=== PATIENT | male | born 1990 | race Caucasian/White ===

== ENCOUNTER 2020-09-02 04:23 | Emergency (ER) | payer SELFPAY ==
--- NOTE | 2020-09-02 05:38 | ER Document Report ---
ED Respiratory Problem - General Chief Complaint: Shortness Of Breath Stated Complaint: BREATHING DIFFICULTY Time Seen by Provider: 09/02/20 05:29 Mode of Arrival: Ambulatory Information source: Patient Notes: 09/02/20 04:49 - ED Nursing Note by SOCORRO SEGURA Num: [id number] : 1990 Patient Age: [age] Y/O MALE, WITH A HX OF SLEEP APNEA, PRESENTS REPORTING THAT FOR THE LAST 3 NIGHTS HE WAS AWAKENED "GASPING FOR AIR". TONIGHT, PT REPORTED THAT HE COULD NOT GO BACK TO SLEEP. PT REPORTED THAT HE TAKES SLEEPING AIDS NIGHTLY TO HELP HIM SLEEP. INAD. SAT 97% ON R/A. LUNGS CLEAR, SPEAKING IN FULL SENTENCES. Initialized on 09/02/20 04:49 - END OF NOTE MY NOTES 30-year-old male arrives by POV with chief complaint of having awakening from sleeping with gasping sensation and air hungry. Patient reports this occurred 3 times tonight sequentially and every night for the last 3 nights. Patient denies any hemoptysis sinusitis earache headache nuchal rigidity thyroid problems history of pulmonary emboli heart attack. His father has sleep apnea as well but never symptoms like the patient has experienced. Patient denies any new medicines any new travel he denies any new drinks or foods new pets. Patient has moved from [place] to [place] or over 2 months ago. He denies any heating or air conditioning changes in his house. Patient stopped smoking and drinking 2 months ago after he was told he had high blood pressure. His mother and father both have high blood pressure and take medications for this. He is stopped using high salty foods. Patient works as a server security administrator and has not had any new herbal medicines or any new foods. Patient reports she already had a COVID-19 the the prior day and it was negative. He arrives with tachycardia with EKG sinus tachycardia 105. His portable chest x- ray was negative for any lesions. TRAVEL OUTSIDE OF THE [place] IN LAST 30 DAYS: No - Related Data Allergies/Adverse Reactions: azithromycin Allergy (Verified 09/02/20 04:44) Home Medications: LEXAPRO. SLEEPING MEDICATIONS Past Medical History - General Information source: Patient - Social History Smoking Status: Former Smoker Cigarette use (# per day): No - Patient stop drinking and smoking 2 months ago Chew tobacco use (# tins/day): No Smoking Education Provided: No Frequency of alcohol use: None Drug Abuse: None Lives with: Family Family History: Reviewed & Not Pertinent Patient has suicidal ideation: No Patient has homicidal ideation: No Review of Systems - Review of Systems Constitutional: See HPI, Weakness EENT: See HPI, Throat pain Cardiovascular: See HPI, Palpitations, Orthopnea Respiratory: No symptoms reported Gastrointestinal: No symptoms reported Genitourinary: No symptoms reported Male Genitourinary: No symptoms reported Musculoskeletal: No symptoms reported Skin: No symptoms reported Hematologic/Lymphatic: No symptoms reported Neurological/Psychological: No symptoms reported Physical Exam - Vital signs Vitals: Temp Pulse Resp BP Pulse Ox 98.1 F 114 H 16 138/95 H 97 09/02/20 04:30 09/02/20 04:30 09/02/20 04:30 09/02/20 04:30 09/02/20 04:30 Interpretation: Hypertensive, Tachycardic - General General appearance: Appears well, Alert - HEENT Head: Normocephalic, Atraumatic Eyes: Normal Pupils: PERRL - Respiratory Respiratory status: No respiratory distress Chest status: Nontender Breath sounds: Normal Chest palpation: Normal - Cardiovascular Rhythm: Tachycardia Heart sounds: Normal auscultation Murmur: No - Abdominal Inspection: Normal Distension: No distension Bowel sounds: Normal Tenderness: Nontender Organomegaly: No organomegaly - Rectal Prostate: Other - Deferred - Genitourinary Scrotum: Other - Deferred - Back Back: Normal, Nontender - Extremities General upper extremity: Normal inspection, Nontender, Normal color, Normal ROM, Normal temperature General lower extremity: Normal inspection, Nontender, Normal color, Normal ROM, Normal temperature, Normal weight bearing. No: Shravan's sign - Neurological Neuro grossly intact: Yes Cognition: Normal Orientation: AAOx4 Rueter Coma Scale Eye Opening: Spontaneous Rueter Coma Scale Verbal: Oriented Raudel Coma Scale Motor: Obeys Commands Raudel Coma Scale Total: 15 Speech: Normal Motor strength normal: LUE, RUE, LLE, RLE Sensory: Normal - Psychological Associated symptoms: Anxious - Skin Skin Temperature: Warm Skin Moisture: Dry Skin Color: Normal Course - Vital Signs Vital signs: Temp Pulse Resp BP Pulse Ox 98.1 F 110 H 16 132/90 H 97 09/02/20 04:30 09/02/20 05:55 09/02/20 04:30 09/02/20 05:55 09/02/20 04:30 - Laboratory Results Result Diagrams: 09/02/20 05:47 09/02/20 05:47 Critical Laboratory Results Reviewed: Yes Attending or Supervising Physician who Reviewed Labs: BRIANNE JAMES JR - Radiology Results Critical Radiology Results Reviewed: Yes Attending or Supervising Physician who Reviewed Radiology: BRIANNE JAMES JR EKG Interpretation by Me EKG shows normal: Sinus rhythm Rate: Tachycardia Rhythm: NSR - Sinus tachycardia [address] elevation no ST depression no T wave elevation no T wave depression and I read this EKG myself and I agree with the EKG machine findings. Critical Care Note - Critical Care Note Comments: this case was turned over to Tung at 0605 Discharge - Discharge Clinical Impression: Tachycardia Hypertension Qualifiers: Hypertension type: unspecified Qualified Code(s): I10 - Essential (primary) hypertension Sleep apnea Qualifiers: Sleep apnea type: unspecified type Qualified Code(s): G47.30 - Sleep apnea, unspecified Condition: Stable Disposition: HOME, SELF-CARE Additional Instructions: Follow-up with personal doctor return to ER as needed take medicines as directed encourage fluids Prescriptions: Lisinopril/Hydrochlorothiazide [Lisinopril-Hctz 20-25 mg Tab] 1 each PO DAILY #30 tablet Forms: Return to Work
[2020-09-02 06:11] LABS: ABSOLUTE EOSINOPHILS # (AUTO) 0.1 10^3/uL (0.0-0.6); ABSOLUTE LYMPHOCYTES (AUTO) 2.1 10^3/uL (0.5-4.7); ABSOLUTE MONOCYTES (AUTO) 0.6 10^3/uL (0.1-1.4); ABSOLUTE NEUT (AUTO) 3.6 10^3/uL (1.7-8.2); BASOPHILS % (AUTO) 0.4 % (0-2); EOSINOPHILS % (AUTO) 1.4 % (0-6); HEMATOCRIT 42.9 % (37.9-51.0); HEMOGLOBIN 14.4 g/dL (13.5-17.0); LYMPHOCYTES % (AUTO) 32.4 % (13-45); MEAN CORPUSCULAR HEMOGLOBIN 28.3 pg (27.0-33.4); MEAN CORPUSCULAR HGB CONC 33.5 g/dL (32.0-36.0); MEAN CORPUSCULAR VOLUME 85 fl (80-97); MONOCYTES % (AUTO) 9.3 % (3-13); PLATELET COUNT 303 10^3/uL (150-450); RED BLOOD COUNT 5.08 10^6/uL (4.35-5.55); RED CELL DISTRIBUTION WIDTH 13.4 % (11.5-14.0); SEGMENTED NEUTROPHILS % (AUTO) 56.5 % (42-78); TOTAL CELLS COUNTED % (AUTO) 100 %; WHITE BLOOD COUNT 6.3 10^3/uL (4.0-10.5)
[2020-09-02 06:29] LABS: ALBUMIN 4.4 g/dL (3.5-5.0); ALKALINE PHOSPHATASE 56 U/L (38-126); ANION GAP 8 (5-19); ASPARTATE AMINO TRANSFERASE 31 U/L (17-59); BILIRUBIN,DIRECT 0.1 mg/dL (0.0-0.4); BILIRUBIN,TOTAL 0.3 mg/dL (0.2-1.3); BLOOD UREA NITROGEN 18 mg/dL (7-20); CALCIUM 9.7 mg/dL (8.4-10.2); CARBON DIOXIDE 25 mmol/L (22-30); CHLORIDE 106 mmol/L (98-107); GLUCOSE 122 mg/dL (75-110); POTASSIUM 3.9 mmol/L (3.6-5.0); TOTAL PROTEIN 7.3 g/dL (6.3-8.2)
--- NOTE | 2020-09-02 06:29 | RADIOLOGY REPORT (SQ) ---
CHEST X-RAY 1 VIEW on 09/02/2020 at 5:58 AM CLINICAL INDICATION: Shortness of breath COMPARISON: None FINDINGS: The lungs are clear. Cardiac, hilar and mediastinal contours are within normal limits. Pulmonary vascularity is within normal limits. No bony abnormality is noted. IMPRESSION: No active disease.
[2020-09-02 07:35] LABS: FREE T3 8.15 pg/mL (2.77-5.27); FREE T4 (FREE THYROXINE) 1.3 ng/dL (0.78-2.19)
[2020-09-02 08:01] VITALS: BP 133/84
--- NOTE | 2020-09-02 08:38 | ER Document Report ---
Doctor's Note Notes: 09/02/20 08:34 This 30-year-old male patient was turned over to me at shift change this morning pending a D-dimer, Chem-12 and TSH. His concerning physical findings were a slightly elevated heart rate and elevated blood pressure. He has been told in the past she had high blood pressure. The lab work showed a negative D-dimer, and an elevated TSH at 8.31, when I saw this I added a free T3 and T4. When these results came back the T4 was normal, but the free T3 was elevated 8.15 I discussed the case with one of the hospitalists and several possibilities were suggested including pituitary secreting TSH, or abnormal conversion of T4-T3. I try to Google search for elevated TSH, elevated T3, and normal T4 and was unable to find that combination. I did find some mention about possible lab abnormalities that should be controlled for. While I was waiting to speak with the pathologist about these lab values, I looked and saw the patient had been discharged. I had not put the patient up for discharge. I asked the charge nurse to try to locate the patient and ask him to come back so I could review the findings with him, and put him on a beta-sandie medication rather than the lisinopril that had been prescribed. 09/02/20 09:07 The patient return. I reviewed the lab findings with him and the need to put him on a beta-sandie drug rather than the lisinopril HCTZ he had been prescribed. He understands this. He states that he did have lab work done in July while living in [facility] when he was told he had high blood pressure. He does not know if TSH was one of the test done, but he has copies of the lab work at his home. He is going to take copies of the lab work today home and see if they checked any of that in July. He is also instructed to establish with a local primary care provider to further work-up his thyroid hormone abnormalities. The lisinopril HCTZ prescription will be destroyed, and he is discharged with a prescription for propranolol 40 mg every 12 hours. He is given a 1 month supply, and encouraged to follow-up with a primary care provider in the next 1 to 2 weeks.
--- NOTE | 2020-09-02 14:48 | EKG REPORT ---
SEVERITY:- OTHERWISE NORMAL ECG - SINUS TACHYCARDIA : Confirmed by: Dimitrios Wiggins MD 02-Sep-2020 14:47:51
== END 2020-09-02 08:01 | disposition home or self-care (01) ==
LOC: ER 04:23
DX: G47.30 Sleep apnea, unspecified (principal); I10 Essential (primary) hypertension; R00.0 Tachycardia, unspecified; R53.1 Weakness; R00.2 Palpitations; R06.01 Orthopnea; R07.0 Pain in throat; R79.89 Other specified abnormal findings of blood chemistry; Z79.899 Other long term (current) drug therapy; Z87.891 Personal history of nicotine dependence; Z88.1 Allergy status to other antibiotic agents
CPT/HCPCS: 36415; 71045; 80053; 84439; 84443; 84481; 85025; 85379; 93005; 93010; 99285